=== PATIENT | male | born 1970 | race Caucasian/White ===

== ENCOUNTER → 2018-01-13 | Outpatient (CLI) | payer MEDICARE, MEDICAID ==
[~2018-01-13] MED LIST: ALPR.25 PO; CLON.2 PO; DOCU1CAP39 PO; HYDRA50 PO; METO50TA PO; MYCO500 PO; NYST500KS SWISH-SWAL; OXYC1SOL5 PO; PANT40IN3 PO; PRED10 PO; SULF-154 PO; TACR1 PO; VALG450 PO
[2018-01-13 09:07] LABS: AUTOMATED NEUTROPHIL # 12.9 TH/MM3 (1.8-7.7); BASOPHIL # 0.1 TH/MM3 (0-0.2); BASOPHIL % 0.8 % (0.0-2.0); EOSINOPHIL # 0.2 TH/MM3 (0-0.4); HEMATOCRIT 41.9 % (39.0-51.0); HEMOGLOBIN 14.5 GM/DL (13.0-17.0); LYMPH % 8.3 % (9.0-44.0); LYMPHOCYTE # 1.3 TH/MM3 (1.0-4.8); MEAN CELL VOLUME 87.9 FL (80.0-100.0); MEAN CORPUSCULAR HEMOGLOBIN 30.4 PG (27.0-34.0); MEAN CORPUSCULAR HGB CONC 34.6 % (32.0-36.0); MEAN PLATELET VOLUME 9.7 FL (7.0-11.0); MONO % 7.5 % (0.0-8.0); MONOCYTE # 1.2 TH/MM3 (0-0.9); NEUT % 82.4 % (16.0-70.0); PLATELET COUNT 191 TH/MM3 (150-450); RED BLOOD COUNT 4.76 MIL/MM3 (4.50-5.90); RED CELL DISTRIBUTION WIDTH 13.4 % (11.6-17.2); WHITE BLOOD COUNT 15.6 TH/MM3 (4.0-11.0)
[2018-01-13 09:10] LABS: BILIRUBIN, URINE NEG (NEG); BLOOD, URINE NEG (NEG); GLUCOSE,URINE NEG (NEG); KETONE, URINE NEG (NEG); MUCUS URINE FEW /lpf (OCC); NITRITE,URINE NEG (NEG); URINE COLOR YELLOW (YELLW/STRAW); URINE LEUKOCYTE ESTERASE NEG (NEG)
[2018-01-13 09:31] LABS: CHOLESTEROL 144 MG/DL (120-200); TRIGLYCERIDES 190 MG/DL (42-150)
[2018-01-13 09:37] LABS: ALKALINE PHOSPHATASE 88 U/L (45-117); ALT (GPT) 23 U/L (12-78); TOTAL BILIRUBIN ADULT 0.5 MG/DL (0.2-1.0); TOTAL PROTEIN 7.2 GM/DL (6.4-8.2)
[2018-01-13 09:43] LABS: ALBUMIN 3.6 GM/DL (3.4-5.0); AST (GOT) 28 U/L (15-37); BICARBONATE 23.3 MEQ/L (21.0-32.0); BLOOD UREA NITROGEN 26 MG/DL (7-18); CALCIUM 9.2 MG/DL (8.5-10.1); CHLORIDE 112 MEQ/L (98-107); GLOMERULAR FILTRATION RATE 47 ML/MIN (>89); GLUCOSE,FASTING 107 MG/DL (74-99); SODIUM (NA) 142 MEQ/L (136-145)
== END ==
LOC: CLAB 08:38
PROVIDERS: ATTEND Internal Medicine Nephrology
DX: I12.0 Hypertensive chronic kidney disease with stage 5 chronic kidney disease or end stage renal disease (principal); N18.6 End stage renal disease; Z94.0 Kidney transplant status
CPT/HCPCS: 36415; 80053; 80197; 81001; 82465; 84478; 85025

== ENCOUNTER 2018-01-30 06:14 | Emergency (ER) | payer MEDICARE, MEDICAID ==
[~2018-01-30] VITALS: Ht 177.8 cm; Wt 115.0 kg
[2018-01-30 06:19] VITALS: BP 179/86; PULSE 70; RESP 18; TEMP 97.5; O2SAT 99
[2018-01-30] MEDS ORDERED: PANT40TA3 PO (06:41)
[2018-01-30] MEDS ORDERED: PRED5TAB PO (06:41)
[2018-01-30] MEDS ORDERED: HYDR-3801 PO (06:41)
[2018-01-30] MEDS ORDERED: CLON0.2T PO (06:41)
[2018-01-30] MEDS ORDERED: METO100T PO (06:41)
[2018-01-30] MEDS ORDERED: ALPR0.25 PO (06:41)
[2018-01-30] MEDS ORDERED: TACR5 PO (06:41)
--- NOTE | 2018-01-30 07:20 | PD ---
HPI Chief Complaint: Musculoskeletal Complaint Time Seen by Provider: 06:58 Travel History International Travel<30 days: No Contact w/Intl Traveler<30days: No Traveled to known affect area: No History of Present Illness HPI This 47-year-old male is complaining of pain in his left foot. He woke up yesterday with the pain. He does not recall any injury. The foot felt okay when he went to bed. He has not had fever or chills. There is been no unusual exertion. He has a history of gout. He has been on allopurinol in the past but is not on it now. He has had a kidney transplant about a year and a half ago. He is currently on 5 mg of prednisone per day. He does not have much pain at rest but when he tries to walk and hurts quite a bit. He is able to walk with a limp PFSH Past Medical History Arthritis: Yes Asthma: No Autoimmune Disease: No Blood Disorders: No Anxiety: Yes Depression: No Heart Rhythm Problems: No Cancer: No Cardiovascular Problems: Yes (HTN) High Cholesterol: Yes Chemotherapy: No Chest Pain: No Congestive Heart Failure: No COPD: No Cerebrovascular Accident: No Diabetes: No Dialysis: Yes Diminished Hearing: No Endocrine: No Gastrointestinal Disorders: No GERD: No Glaucoma: No Gout: Yes Genitourinary: Yes (ESRD) Headaches: No Hepatitis: Yes Hiatal Hernia: No Heparin Induced Thrombocytopen: No Hypertension: Yes Immune Disorder: No Implanted Vascular Access Dvce: Yes (SHUNT) Kidney Stones: Yes Musculoskeletal: No Neurologic: No Psychiatric: No Reproductive: No Respiratory: No Migraines: No Myocardial Infarction: No Pancreatitis: Yes Radiation Therapy: No Renal Failure: Yes Seizures: No Sickle Cell Disease: No Sleep Apnea: Yes Thyroid Disease: No Ulcer: No Tetanus Vaccination: < 5 Years Influenza Vaccination: Yes Past Surgical History Abdominal Surgery: No AICD: No Appendectomy: No Arteriovenous Shunt: Yes Cardiac Surgery: No Cholecystectomy: No Ear Surgery: No Endocrine Surgery: No Eye Surgery: No Genitourinary Surgery: No Gynecologic Surgery: No Insulin Pump: No Joint Replacement: No Neurologic Surgery: No Oral Surgery: No Pacemaker: No Thoracic Surgery: No Other Surgery: No (KIDNEY TRANSPLANT ) Social History Alcohol Use: No Tobacco Use: No Substance Use: Yes Allergies-Medications (Allergen,Severity, Reaction): Coded Allergies: *MDRO Multi-Drug Resistant Organism (Verified Adverse Reaction, Unknown, ) MRSA (scrotal wound) - 06/2013 MRSA PCR screen NEGATIVE - 06/24/16 & 06/26/16 Cleared per Infection Control Reported Meds & Prescriptions Reported Meds & Active Scripts Active Reported Prograf (Tacrolimus) 5 Mg Cap 4 Mg PO BID Prednisone 5 Mg Tab 5 Mg PO DAILY Pantoprazole (Pantoprazole Sodium) 40 Mg Tab 40 Mg PO DAILY Metoprolol Tartrate 100 Mg Tab 100 Mg PO BID Hydralazine (Hydralazine HCl) 100 Mg Tab 100 Mg PO TID Take with meals Clonidine (Clonidine HCl) 0.2 Mg Tab 0.2 Mg PO BID Alprazolam 0.25 Mg Tab 0.25 Mg PO Q6H PRN Review of Systems General / Constitutional: No: Fever, Chills Cardiovascular: No: Chest Pain or Discomfort Gastrointestinal: No: Vomiting, Diarrhea Musculoskeletal: Positive: Myalgias, Pain Skin: No Rash, No Itching Neurologic: No: Weakness Endocrine: No: Heat Intolerance Hematologic/Lymphatic: No: Easy Bruising Physical Exam Narrative GENERAL well-developed male SKIN: Focused skin assessment warm/dry. HEAD: Atraumatic. Normocephalic. EYES: Pupils equal and round. No scleral icterus. No injection or drainage. ENT: No nasal bleeding or discharge. Mucous membranes pink and moist. NECK: Trachea midline. No JVD. CARDIOVASCULAR: Regular rate and rhythm. No murmur appreciated. RESPIRATORY: No accessory muscle use. Clear to auscultation. Breath sounds equal bilaterally. GASTROINTESTINAL: Abdomen soft, non-tender, nondistended. Hepatic and splenic margins not palpable. MUSCULOSKELETAL: No obvious deformities. No clubbing. No cyanosis. No edema. There is mild erythema and swelling at the base of the fifth metatarsal. It is tender to palpation. There is no deformity. The skin is intact NEUROLOGICAL: Awake and alert. No obvious cranial nerve deficits. Motor grossly within normal limits. Normal speech. PSYCHIATRIC: Appropriate mood and affect; insight and judgment normal. Data Data Last Documented VS Vital Signs Date Time Temp Pulse Resp B/P (MAP) Pulse Ox O2 Delivery O2 Flow Rate FiO2 01/30/18 06:19 97.5 70 18 179/86 (117) 99 Orders Orders Foot, Complete ([id number]) (01/30/18 07:04) Prednisone (Deltasone) (01/30/18 07:45) [facility] Medical Decision Making Medical Screen Exam Complete: Yes Emergency Medical Condition: Yes Medical Record Reviewed: Yes Differential Diagnosis Differential includes acute arthritis, occult fracture, gouty arthritis Narrative Course This could well be gouty arthritis. The patient has a history of renal transplants was not candidate for nonsteroidal medications. I think he would benefit from 2 days of prednisone 60 mg Diagnosis Primary Impression: Acute arthritis Scripts Prednisone (Prednisone) 20 Mg Tab 60 MG PO ONCE, #3 TAB 0 Refills Prov: Eugenio Emanuel MD 01/30/18 Disposition: 01 DISCHARGE HOME Condition: Stable Eugenio Emanuel MD January 30, 2018 07:20
--- NOTE | 2018-01-30 07:37 | RADRPT ---
EXAM DATE/TIME: 01/30/2018 07:23 [place] COMPARISON: No previous studies available for comparison. INDICATIONS : Left lateral foot pain, no injury. MEDICAL HISTORY : Cardiovascular disease. Hepatitis. Kidney failure SURGICAL HISTORY : Renal transplant ENCOUNTER: Initial ACUITY: 3 days PAIN SCORE: 6/10 LOCATION: Left lateral foot FINDINGS: Three views of the left foot demonstrate no fracture or dislocation. The Lisfranc joint appears intac t. Mineralization is within normal limits. There are small osteophytes at the third metatarsophalange al joint. No soft tissue abnormality or radiopaque foreign body is identified. There is small vessel arterial vessel or calcification. CONCLUSION: No acute left foot abnormality. Lane Grissom MD on January 30, 2018 at 7:33 Board Certified Radiologist. This report was verified electronically.
[2018-01-30] MEDS ORDERED: predniSONE 20 MG TAB PO ONE (07:45)
[2018-01-30] MEDS ORDERED: PRED20 PO (07:45)
== END 2018-01-30 07:57 | disposition home or self-care (01) ==
LOC: PHED 06:14
DX: M19.90 Unspecified osteoarthritis, unspecified site (principal); I10 Essential (primary) hypertension; F41.9 Anxiety disorder, unspecified; E78.00 Pure hypercholesterolemia, unspecified; I12.0 Hypertensive chronic kidney disease with stage 5 chronic kidney disease or end stage renal disease; N18.6 End stage renal disease; Z87.19 Personal history of other diseases of the digestive system; Z94.0 Kidney transplant status; Z87.442 Personal history of urinary calculi
CPT/HCPCS: 73630; 99283; J7512

== ENCOUNTER → 2018-03-06 | Outpatient (CLI) | payer MEDICARE, MEDICAID ==
[~2018-03-06] MED LIST changes: -ALPR.25 PO; +ALPR0.25 PO; -CLON.2 PO; +CLON0.2T PO; -DOCU1CAP39 PO; +HYDR-3801 PO; -HYDRA50 PO; +METO100T PO; -METO50TA PO; -MYCO500 PO; -NYST500KS SWISH-SWAL; -OXYC1SOL5 PO; -PANT40IN3 PO; +PANT40TA3 PO; -PRED10 PO; +PRED20 PO; +PRED5TAB PO; -SULF-154 PO; -TACR1 PO; +TACR5 PO; -VALG450 PO
[2018-03-06 08:50] LABS: AUTOMATED NEUTROPHIL # 13.7 TH/MM3 (1.8-7.7); BASOPHIL # 0.1 TH/MM3 (0-0.2); BASOPHIL % 0.6 % (0.0-2.0); EOSINOPHIL # 0.1 TH/MM3 (0-0.4); EOSINOPHIL % 0.8 % (0.0-4.0); HEMATOCRIT 42.8 % (39.0-51.0); HEMOGLOBIN 14.4 GM/DL (13.0-17.0); LYMPH % 9.5 % (9.0-44.0); LYMPHOCYTE # 1.6 TH/MM3 (1.0-4.8); MEAN CELL VOLUME 87.4 FL (80.0-100.0); MEAN CORPUSCULAR HEMOGLOBIN 29.5 PG (27.0-34.0); MEAN CORPUSCULAR HGB CONC 33.8 % (32.0-36.0); MONO % 8.2 % (0.0-8.0); MONOCYTE # 1.4 TH/MM3 (0-0.9); NEUT % 80.9 % (16.0-70.0); PLATELET COUNT 199 TH/MM3 (150-450); RED BLOOD COUNT 4.89 MIL/MM3 (4.50-5.90); RED CELL DISTRIBUTION WIDTH 13.7 % (11.6-17.2); WHITE BLOOD COUNT 16.9 TH/MM3 (4.0-11.0)
[2018-03-06 08:52] LABS: BACTERIA, URINE RARE /hpf; BILIRUBIN, URINE NEG (NEG); BLOOD, URINE NEG (NEG); GLUCOSE,URINE NEG (NEG); KETONE, URINE NEG (NEG); MUCUS URINE FEW /lpf (OCC); NITRITE,URINE NEG (NEG); URINE COLOR YELLOW (YELLW/STRAW); URINE LEUKOCYTE ESTERASE NEG (NEG)
[2018-03-06 09:05] LABS: ALBUMIN 3.9 GM/DL (3.4-5.0); AST (GOT) 19 U/L (15-37); BICARBONATE 23.3 MEQ/L (21.0-32.0); BLOOD UREA NITROGEN 25 MG/DL (7-18); CALCIUM 9.8 MG/DL (8.5-10.1); CHLORIDE 107 MEQ/L (98-107); CREATININE 1.62 MG/DL (0.60-1.30); GLOMERULAR FILTRATION RATE 46 ML/MIN (>89); GLUCOSE,FASTING 103 MG/DL (74-99); MAGNESIUM 1.8 MG/DL (1.5-2.5); SODIUM (NA) 141 MEQ/L (136-145)
[2018-03-06 09:06] LABS: ALT (GPT) 26 U/L (12-78); CHOLESTEROL 165 MG/DL (120-200)
[2018-03-06 09:15] LABS: ALKALINE PHOSPHATASE 94 U/L (45-117); CHOLESTEROL/ HDL RATIO 5.09 RATIO; HDL CHOLESTEROL 32.4 MG/DL (40.0-60.0); LDL CHOLESTEROL 79 MG/DL (0-99); TOTAL BILIRUBIN ADULT 0.5 MG/DL (0.2-1.0); TOTAL PROTEIN 7.5 GM/DL (6.4-8.2); TRIGLYCERIDES 270 MG/DL (42-150)
== END ==
LOC: CLAB 07:53
PROVIDERS: ATTEND Internal Medicine Hematology & Oncology
DX: Z99.2 Dependence on renal dialysis (principal)
CPT/HCPCS: 36415; 80053; 80061; 80197; 81001; 83735; 84100; 84443; 85025; 86140